=== PATIENT | female | born 1960 | race Caucasian/White ===

== ENCOUNTER 2017-09-13 07:23 | Observation (INO) | payer BC ==
[~2017-09-13] VITALS: Ht 152.4 cm; Wt 96.8 kg
[~2017-09-13 07:23] MED LIST: DEXAMETHASONE1 MG PO; DIAZEPAM5 MG PO; DILAUDID2 MG PO; Fioricet,Esgic,Repan PO; HYDROCHLOROTHIA25 MG PO; IBUPROFEN400 MG PO; PRILOSEC OTC20 MG PO; Percocet 5/325,Endoc PO; TOPROL XL50 MG PO; TRAMADOL HCL50 MG PO; Toprol XL PO; [UNRECOGNIZED DRUG - OTHER]
[2017-09-13 07:46] LABS: HEMATOCRIT 38.3 % (36.0-46.0); HEMOGLOBIN 12.2 G/DL (11.9-15.5); MCH 27.4 PG (29.0-34.0); MCHC 31.9 G/DL (30.0-36.0); MCV 85.9 FL (83-99); PLATELET COUNT 377 K/uL (156-360); RBC DIS.WIDTH-CV 15.5 % (11.8-14.6); RBC DIS.WIDTH-SD 48.7 % (39-53); RED BLOOD COUNT 4.46 M/uL (3.80-5.20); WHITE BLOOD COUNT 10.8 K/uL (4.1-10.2)
[2017-09-13 08:22] LABS: CHLORIDE 106 MEQ/L (99-109); POTASSIUM 3.9 MEQ/L (3.7-5.4); SODIUM 141 MEQ/L (136-147)
[2017-09-13 08:27] LABS: CREATININE 0.7 MG/DL (0.6-1.3); GFR ESTIMATE (CALCULATED) > 59 mL/min/; GLUCOSE 89 mg/dL (70-99); UREA NITROGEN (BUN) 20 mg/dL (9-23)
[2017-09-13] MEDS ORDERED: LOPRESSOR50 MG PO (12:03)
[2017-09-13] MEDS ORDERED: BENZONATATE100 MG PO (12:04)
[2017-09-13] MEDS ORDERED: MOBIC15 MG PO (12:05)
[2017-09-13] MEDS ORDERED: PROAIR HFA8.5 GM IH (12:05)
[2017-09-13 19:35] VITALS: BP 139/65
[2017-09-13 23:34] VITALS: BP 109/64
[2017-09-14 06:35] LABS: HEMATOCRIT 36.8 % (36.0-46.0); HEMOGLOBIN 11.4 G/DL (11.9-15.5); MCH 27.1 PG (29.0-34.0); MCV 87.6 FL (83-99); PLATELET COUNT 328 K/uL (156-360); RBC DIS.WIDTH-CV 15.8 % (11.8-14.6); RBC DIS.WIDTH-SD 49.3 % (39-53); WHITE BLOOD COUNT 8.5 K/uL (4.1-10.2)
[2017-09-14 06:37] LABS: INTER. NORMALIZED RATIO 1.1
[2017-09-14 06:40] LABS: PTT 28.9 SEC (25-37)
[2017-09-14 06:54] LABS: ALBUMIN 3.3 G/DL (3.2-4.8); ALKALINE PHOSPHATASE 92 IU/L (3-129); ALT (GPT) 11 IU/L (3-49); AST (GOT) 12 IU/L (2-34); CHLORIDE 106 MEQ/L (99-109); CREATININE 0.6 MG/DL (0.6-1.3); GFR ESTIMATE (CALCULATED) > 59 mL/min/; GLUCOSE 84 mg/dL (70-99); POTASSIUM 4.1 MEQ/L (3.7-5.4); SODIUM 142 MEQ/L (136-147); TOTAL BILIRUBIN 0.4 MG/DL (0.0-1.0); TOTAL PROTEIN 6.1 G/DL (6.4-8.3); UREA NITROGEN (BUN) 15 mg/dL (9-23)
[2017-09-14 08:02] VITALS: BP 147/72
[2017-09-14 08:30] VITALS: BP 123/64
[2017-09-14] MEDS ORDERED: XANAX0.25 MG PO ×2 (13:31→13:43)
== END 2017-09-14 14:28 | disposition home or self-care (01) ==
LOC: EME 07:23 → 5EAST 11:50 → EDOF 11:50 → ENRESERV 11:52 → EDOF 12:19 → ENRESERV 16:00 → 5EAST 19:05 → ENPENDDIS 09-14 → 5EAST 09-14 12:57
PROVIDERS: Internal Medicine; Physician Assistant
PROC: 0BBL3ZX Excision of Left Lung, Percutaneous Approach, Diagnostic (ICD-10-PCS; principal; 2017-09-14)
DX: C34.92 Malignant neoplasm of unspecified part of left bronchus or lung (principal); Z87.891 Personal history of nicotine dependence; Z80.1 Family history of malignant neoplasm of trachea, bronchus and lung; R59.0 Localized enlarged lymph nodes; Z85.3 Personal history of malignant neoplasm of breast; Z85.41 Personal history of malignant neoplasm of cervix uteri; Z92.3 Personal history of irradiation; Z90.710 Acquired absence of both cervix and uterus; I10 Essential (primary) hypertension; G44.209 Tension-type headache, unspecified, not intractable; Z98.1 Arthrodesis status; M51.36 Other intervertebral disc degeneration, lumbar region; F41.9 Anxiety disorder, unspecified
CPT/HCPCS: 71045; 71046; 71250; 71275; 77012; 80048; 80053; 82948; 85027; 85610; 85730; 88305; 88341 TC; 88342 TC; 93005; 94640; 99202; 99281; 99285; G0378; J1644; J1885; J2270; J3010; J7030

== ENCOUNTER 2017-12-10 07:57 | Day surgery (SDC) | payer BC ==
[~2017-12-10] VITALS: Ht 152.4 cm; Wt 99.8 kg
[~2017-12-10 07:57] MED LIST changes: +BENZONATATE100 MG PO; +CYANOCOBALAM1000 MCG PO; +FOLIC ACID1 MG PO; +LOPRESSOR50 MG PO; +MOBIC15 MG PO; +PROAIR HFA8.5 GM IH; +ULTRAM ER100 MG PO; +XANAX0.25 MG PO
== END 2017-12-10 10:40 | disposition home or self-care (01) ==
LOC: CATH 07:57
DX: Z45.2 Encounter for adjustment and management of vascular access device (principal); I87.8 Other specified disorders of veins; C34.90 Malignant neoplasm of unspecified part of unspecified bronchus or lung; Z85.3 Personal history of malignant neoplasm of breast; I10 Essential (primary) hypertension; E78.00 Pure hypercholesterolemia, unspecified; Z87.891 Personal history of nicotine dependence
CPT/HCPCS: C1751; C1894; J0690; J1644; J2250; J3010; S0020